=== PATIENT | male | born 1970 | race African-American/Black ===

== ENCOUNTER 2023-01-31 12:41 | Emergency (ER) | payer OTHER ==
[~2023-01-31] VITALS: Ht 175.3 cm; Wt 75.9 kg
[2023-01-31] MEDS ORDERED: AMOX1TAB16 PO (12:50)
[2023-01-31] MEDS ORDERED: SILD25 PO (12:50)
[2023-01-31] MEDS ORDERED: IBUP-2492 PO (12:50)
[2023-01-31] MEDS ORDERED: SILD20TA2 PO (12:50)
[2023-01-31] MEDS ORDERED: ACET-2080 PO (12:50)
[2023-01-31 12:51] VITALS: BP 131/72
== END 2023-01-31 14:37 | disposition left against medical advice (07) ==
LOC: EMS 12:41
DX: Z53.21 Procedure and treatment not carried out due to patient leaving prior to being seen by health care provider (principal)
CPT/HCPCS: 99281; Z7502